=== PATIENT | female | born 1945 ===

== ENCOUNTER 2020-12-12 13:04 | Inpatient (IN) ==
[~2020-12-12 13:04] MED LIST: Buffered Lidocaine 1% SYRIN 1 ml INTRADERM ONE; Lactated Ringers 1000 ml BAG 1,000 ML IV SCH
[2020-12-12] MEDS ORDERED: ceFAZolin 2 GM PREMIX 2 GM/50 ML BAG ONE (13:30)
[2020-12-12] MEDS ORDERED: Buffered Lidocaine 1% SYRIN 1 ml INTRADERM ONE (13:31)
[2020-12-12] MEDS ORDERED: Midazolam 2 mg/2 ml VIAL 1 mg/ml 2 ml VIAL (2 mg) ONE (13:41)
[2020-12-12] MEDS ORDERED: fentaNYL 100 mcg/2 ml 50 MCG/ML VIAL ONE (15:27)
[2020-12-12] MEDS ORDERED: Ketamine HCL 50 mg/ml 10 ml VIAL (500 MG) ONE (15:43)
[2020-12-12] MEDS ORDERED: Ondansetron 4 mg VIAL 2 MG/ML 2 ml VIAL IV PRN (16:05)
[2020-12-12] MEDS ORDERED: oxyCODONE/Acetamin 5/325 mg TAB PO PRN ×2 (16:05→18:07)
[2020-12-12] MEDS ORDERED: Ondansetron ODT 4 mg TAB 4 MG TAB PO PRN (16:05)
[2020-12-12] MEDS ORDERED: diPHENhydraMINE IV 50 MG/ML 1 ml VIAL (BENADRYL) IV PRN (16:05)
[2020-12-12] MEDS ORDERED: diPHENhydraMINE 25 mg TAB PO PRN (16:05)
[2020-12-12] MEDS ORDERED: Lactulose 30 ml UDC PO PRN (16:05)
[2020-12-12] MEDS ORDERED: Morphine 2 MG/ML SYRINGE IV PRN (16:05)
[2020-12-12] MEDS ORDERED: Magnesium Hydroxide LIQ 30 ML UDC PO PRN (16:05)
[2020-12-12] MEDS ORDERED: EPHEDrine (Pressors) 50 MG/ML VIAL ONE (16:17)
[2020-12-12] MEDS ORDERED: oxyCODONE/Acetamin 5/325 mg TAB ONE (18:22)
[2020-12-12] MEDS: Lactated Ringers 1000 ml BAG 1,000 ML IV SCH (19:46)
[2020-12-12] MEDS: Magnesium Hydroxide LIQ 30 ML UDC PO SCH (22:27)
[2020-12-12] MEDS: ceFAZolin 1 GM ADVAN 1 GM in NS 0.9% 50 ML 50 ML IVPB SCH (23:12)
[2020-12-12] MEDS ORDERED: NS 0.9% 500 ml BAG 500 ML IV ONE (23:58)
[2020-12-13 00:09] LABS: ABS Basophils 0.1 10^3/ul (0-0.2); ABS Eosinophils 0.1 10^3/ul (0-0.6); ABS Lymphocytes 0.8 10^3/ul (1.0-4.8); ABS Monocytes 0.6 10^3/ul (0-0.8); ABS Neutrophils 6.9 10^3/ul (1.5-7.7); Eosinophil % 1.3 %; Hematocrit 27 % (35-47); Hemoglobin 9.3 g/dL (12.0-16.0); Lymphocyte % 9.6 %; Mean Corpuscular HGB Conc 34 g/dL (31-36); Mean Corpuscular Hemoglobin 33 pg (27-31); Mean Corpuscular Volume 96 fL (80-97); Mean Platelet Volume 7.3 fL (7.4-10.4); Platelet Count 175 10^3/uL (150-450); Red Blood Count 2.86 10^6 /uL (3.70-4.87); Red Cell Distribution Width 13 % (10-15); White Blood Count 8.4 10^3/uL (3.5-10.8)
[2020-12-13 00:25] LABS: Calcium 8.2 mg/dL (8.6-10.3); EGFR African American 103.5 (>60); EGFR Non-African American 85.6 (>60); Potassium 3.3 mmol/L (3.5-5.0)
[2020-12-13] MEDS ORDERED: Potassium Chlor 20 meq TAB.ER PO ONE (01:47)
[2020-12-13 04:53] LABS: Hematocrit 28 % (35-47); Hemoglobin 9.6 g/dL (12.0-16.0); Mean Platelet Volume 7.5 fL (7.4-10.4); Platelet Count 178 10^3/uL (150-450)
[2020-12-13 05:10] LABS: Calcium 8.2 mg/dL (8.6-10.3); EGFR African American 101.8 (>60); EGFR Non-African American 84.1 (>60); Potassium 3.6 mmol/L (3.5-5.0)
[2020-12-13] MEDS: Lactated Ringers 1000 ml BAG 1,000 ML IV SCH ×2 (05:35→16:49)
[2020-12-13] MEDS: Magnesium Hydroxide LIQ 30 ML UDC PO SCH ×2 (08:28→23:10)
[2020-12-13] MEDS: Vitamin THERAPEUTIC TAB PO SCH (08:29)
[2020-12-13] MEDS: CMCS:Raloxifene 60 mg TAB (NF) PO SCH (08:30)
[2020-12-13] MEDS: ceFAZolin 1 GM ADVAN 1 GM in NS 0.9% 50 ML 50 ML IVPB SCH ×2 (08:31→15:10)
[2020-12-13] MEDS: CMCS:Desvenlafaxine 50 mg TAB (NF) PO SCH (08:31)
[2020-12-13] MEDS ORDERED: NS 0.9% 1000 ml BAG 1,000 ML IV ONE (12:51)
[2020-12-13 18:15] LABS: Urine Appearance Cloudy; Urine Bilirubin Negative (Negative); Urine Blood 1+ (Negative); Urine Color Yellow; Urine Glucose Negative (Negative); Urine Ketones Negative (Negative); Urine Nitrite Negative (Negative); Urine Protein Negative (Negative); Urine Specific Gravity 1.004 (1.002-1.030); Urine Urobilinogen Negative (Negative)
[2020-12-13 18:20] LABS: Urine Bacteria Absent (Absent); Urine Red Blood Cell Trace(0-2/hpf) (Absent); Urine Squamous Epithelial Cell Present (Absent); Urine White Blood Cell 2+(11-20/hpf) (Absent)
[2020-12-14 05:37] LABS: Hematocrit 29 % (35-47); Hemoglobin 9.8 g/dL (12.0-16.0); Mean Platelet Volume 7.4 fL (7.4-10.4); Platelet Count 156 10^3/uL (150-450)
[2020-12-14] MEDS: Vitamin THERAPEUTIC TAB PO SCH (08:07)
[2020-12-14] MEDS: Magnesium Hydroxide LIQ 30 ML UDC PO SCH (08:08)
[2020-12-14] MEDS: Lactated Ringers 1000 ml BAG 1,000 ML IV SCH (08:10)
[2020-12-14] MEDS: CMCS:Raloxifene 60 mg TAB (NF) PO SCH (08:10)
[2020-12-14] MEDS: CMCS:Desvenlafaxine 50 mg TAB (NF) PO SCH (08:11)
[2020-12-14 11:18] VITALS: BP 106/68
== END 2020-12-14 13:15 | disposition home or self-care (01) | DRG 470 ==
LOC: AA 13:04 → ICU 18:08 → SSU 18:26
PROVIDERS: ADMIT Orthopaedic Surgery Adult Reconstructive Orthopaedic Surgery; ATTEND Orthopaedic Surgery Adult Reconstructive Orthopaedic Surgery